=== PATIENT | male | born 1940 | race Caucasian/White ===

== ENCOUNTER 2022-09-01 10:00 | Outpatient (RCR) | payer MEDICARE, SELFPAY ==
--- NOTE | 2022-08-07 09:57 | MHC.PT.EP ---
[facility] [place] Office [place] Office [place] Office [address] Evon Agosto [address] [phone] F: [phone] F: [phone] F: [phone] F: [phone] Physical Therapy Plan of Care Date of Evaluation: Date of Surgery: Diagnosis: spinal stenosis Assessment: Patient is a 82 year old R handed male who presents with s/s consistent with lumbar stenosis, back pain. He does not work and has become more and more sedentary due to symptoms and functional limitations. Patient past medical history includes TKE with poor outcome on R. Current impairments include pain, posture, ROM, strength, flexibility, activity tolerance and functional mobility. Functional limitations include decreased ability to transfer, walk, stand, negotiate stairs, got out into the community and perform chores around the house. Patient is motivated with good rehab potential. Skilled PT will address impairments and functional limitations in order to achieve goals. Frequency and Duration: The patient will be seen 2x/week for 5 weeks Short Term Goals: I with HEP - 2 weeks Rotation 50% - 3 weeks 90/90 lacking < 30 - 3 weeks Able to walk 5 minutes without rest or increased pain - 3 weeks Alf Goals: Oswestry 30% or better - 5 weeks Able to walk/stand > 10 minutes without increased pain or need for rest - 5 weeks Hip strength 4/5 grossly - 5 weeks knee strength 4/5 grossly - 5 weeks Treatment Plan: Modalities to reduce pain, spasms and effusion. Manual therapy to restore motion and function. Therapeutic exercise to improve strength and flexibility. Neuromuscular re-education for posture and balance. Therapeutic activities to return to functional activities of daily living. Electronically signed by: Prudencio Burgos, PT Please sign and return to therapist. Thank you for your referral.
--- NOTE | 2022-09-01 10:58 | MHC.PT.DC ---
[facility] [place] Office [place] Office [place] Office [address] Evon Agosto [address] [phone] F: [phone] F: [phone] F: [phone] F: [phone] Physical Therapy Discharge Report Diagnosis: spinal stenosis Date of Surgery: Date of Evaluation: 08/07/22 Date of Discharge: 09/01/22 Treatments to Date: 8 Cancellations to Date: No Shows to Date: Discharge Status: Recommend MD Follow-up Discharge Summary: 09/01/22: pt notes that he has been feeling about the same in terms of his s/s. they have not progressed his symptoms, but simply have left them unchanged. we have attempted LE strength which has not been too successful thus far in attempting functional improvements. we will hold on PT at this time and I encouraged him to call for follow up with [facility]. 08/29/22: we have been continuing to progress strength and flex during PT. pt still has difficulty with transfers but we will continue to address strength. 08/25/22: pt progressing well with skilled PT with improved flex and strength. no adverse reactions and we will continue to progress as tolerated related to function. 08/23/22: pt still with transfer weakness. but tolerated increased resistance on shuttle well. we will continue to progress as tolerated. 08/18/22: pt has been feeling better overall with less s/s. we did after shuttle today to address sit <> Stand difficulty. 08/15; Pt R knee is limited with flexion making STS transfer dif. Pt fatigued after hip strengtheing. 08/09/22: pt responding well with improved activity tolerance. compliant with HEP. we will assess progression potential NV. Patient is a 82 year old R handed male who presents with s/s consistent with lumbar stenosis, back pain. He does not work and has become more and more sedentary due to symptoms and functional limitations. Patient past medical history includes TKE with poor outcome on R. Current impairments include pain, posture, ROM, strength, flexibility, activity tolerance and functional mobility. Functional limitations include decreased ability to transfer, walk, stand, negotiate stairs, got out into the community and perform chores around the house. Patient is motivated with good rehab potential. Skilled PT will address impairments and functional limitations in order to achieve goals. Electronically signed by: Prudencio Burgos, PT Please sign and return to therapist. Thank you for your referral.
== END 2022-09-07 08:02 | disposition home or self-care (01) ==
LOC: HO.PTCHIC 10:00
PROVIDERS: PCP Internal Medicine; Visit Provider Physician Assistant
DX: M48.061 Spinal stenosis, lumbar region without neurogenic claudication (principal)
CPT/HCPCS: 97110; 97162

== ENCOUNTER 2022-10-17 14:27 | Outpatient (REF) | payer MEDICARE, SELFPAY ==
--- NOTE | ~2022-10-17 | XR_ITS ---
EXAMINATION: XR HIP, RIGHT CLINICAL INFORMATION: Right sciatica. COMPARISON: None available. TECHNIQUE: AP and frog-leg lateral views of the right hip. FINDINGS: There is bony mineralization. The right acetabular joint space shows mild medial narrowing. There is mild subchondral sclerosis of the right acetabular roof. The right femoral head is smooth. There is no fracture or dislocation. The pubic symphysis is intact. XR/XR hip RT min 2V IMPRESSION: There is mild osteoarthritic change of the right hip. No fracture or dislocation is seen.
== END 2022-10-17 14:28 | disposition home or self-care (01) ==
LOC: HO.HOSX 14:27
PROVIDERS: PCP Internal Medicine; Visit Provider Neurological Surgery
DX: M54.31 Sciatica, right side (principal); M48.061 Spinal stenosis, lumbar region without neurogenic claudication
CPT/HCPCS: 73502; 99212

== ENCOUNTER 2022-10-17 14:27 | Outpatient (AMB) | payer MEDICARE, SELFPAY ==
--- NOTE | 2022-10-17 14:37 | A.SPINEOV_ITS ---
Intake Intake Visit Reasons: F/u PT Intake Note: Mr. Elliott is here to f/u PT and ? resubmit for surgery. Reprographics Associate Required: No Allergies Penicillins Allergy (Unknown, Verified 07/13/22 10:45) Unknown Assessment & Plan Assessment & Plan (1) Right sided sciatica: Code(s): M54.31 - Sciatica, right side (2) Lumbar stenosis: Code(s): M48.061 - Spinal stenosis, lumbar region without neurogenic claudication Plan Dear colleague, On 10/17/2022 assorted patient Andrew Elliott. He is an 82-year-old male that is suffering from persistent pain radiating down the outside of his right leg and sciatica his left leg. He was scheduled to undergo an L4-5 lumbar decompression and right L5 foraminotomy, which was denied by the insurance company due to lack of a course of physical therapy. In the meantime he went to physical therapy which did not alleviate his symptoms as expected. He comes back with a similar severe symptoms and after I recommended the same surgical plan as before. I did do an x-ray of the right hip to exclude hip pathology which came back negative. We will resubmit the request insurance company and schedule him for surgery. Jong Sullivan MD, PhD Spine Fellowship Trained Neurosurgeon Director, [facility] Orders: Orders XR hip RT min 2V 10/17/22 M54.31 - Sciatica, right side Coding Level of Care Code Est Pt Level 3 (37999) Diagnoses Right sided sciatica M54.31 Lumbar stenosis M48.061
== END 2022-10-17 15:51 | disposition home or self-care (01) ==
PROVIDERS: PCP Internal Medicine; Visit Provider Neurological Surgery
DX: M54.31 Sciatica, right side (principal); M48.061 Spinal stenosis, lumbar region without neurogenic claudication
CPT/HCPCS: 99213

== ENCOUNTER 2022-11-30 08:16 | Day surgery (SDC) | payer MEDICARE, SELFPAY ==
--- NOTE | 2022-11-16 | ECG_ITS ---
Test Reason : LBBB Blood Pressure : / mmHG Vent. Rate : 044 BPM Atrial Rate : 044 BPM P-R Int : 212 ms QRS Dur : 118 ms QT Int : 488 ms P-R-T Axes : 052 -23 036 degrees QTc Int : 417 ms Marked sinus bradycardia with 1st degree A-V block Non-specific intra-ventricular conduction delay Minimal voltage criteria for LVH, may be normal variant ( [place] product ) Abnormal ECG No previous ECGs available Referred By: Татьяна Ortiz Electronically Signed By:DANA LUX
[2022-11-16 12:12] VITALS: BP 178/79; PULSE 54; RESP 20; O2SAT 96; BMI 33.1
--- NOTE | 2022-11-16 12:31 | P.CONAN_ITS ---
Documented by User: Татьяна Ortiz NP 11/21/22 14:44 HPI - Anesthesia Eval Consult details Narrative: 82yo M for L 4-5 Decompression, Right L5 Laminectomy Lumbar Decompression (Foraminotomy) Medically cleared. EKG reviewed and no changes No recent illness. 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 Does not check blood sugar at home Asthma. Well controlled with flovent. Albuterol ~2 days per week VAN. CPAP QHS [facility] Active Problems Active Problems: All Active Problems (Updated 11/16/22 @ 12:11 by Lupis Burton RN) Lumbar stenosis (Acute) Right sided sciatica (Acute) Past Medical History Medical History (Updated 11/16/22 @ 12:11 by Lupis Burton RN) Skin cancer (melanoma) Back pain Murmur Anxiety Left bundle branch block (LBBB) Sleep apnea TIA (transient ischemic attack) Spinal stenosis Osteoarthritis Lumbar radiculopathy Emphysema of lung Asthma Type 2 diabetes mellitus HTN (hypertension) Elevated cholesterol Iron deficiency anemia Family History Family history of problems with anesthesia: No Surgical History Surgical History (Updated 11/16/22 @ 12:08 by Lupis Burton RN) H/O colonoscopy Hx of arthroscopy of right knee Hx of excision of mass History of total right knee replacement Hx of left inguinal hernia repair Hx of ventral hernia repair History of Problems with Anesthesia: No Social History Social History Are you a primary patient care nursing assistant to a significant other at home: No Do you presently have visiting nurse or other home services: No Patient Tobacco Use Status: Never used Tobacco Use of substances other than those prescribed or required for medical reasons: No Have you been hit, kicked, punched, or otherwise hurt by someone within the past year? If so, by whom?: No Are you DNR?: No Advance Directives Information Provided: Yes (brochure given) Advance Directives on File: No Recently lost weight without trying: No Eating poorly because of decreased appetite: No Nutrition Risks: Surgical patient >75years Poor oral hygiene: No (one tooth-upper right-permanent repair) Meds Allergies Allergy/AdvReac Type Severity Reaction Status Date / Time Penicillins Allergy Intermediate Rash Verified 11/16/22 11:57 Home Medications Medication Instructions Recorded Confirmed Last Taken Type amlodipine 5 mg tablet 5 mg PO DAILY 07/13/22 11/16/22 11/30/22 History aspirin 81 mg tablet,delayed 81 mg PO DAILY 07/13/22 11/16/22 Unknown History release cyanocobalamin (vitamin B-12) 1,000 mcg PO DAILY 07/13/22 11/16/22 Unknown History 1,000 mcg tablet (Vitamin B-12) docusate sodium 100 mg capsule 100 mg PO DAILY 07/13/22 11/16/22 Unknown History finasteride 5 mg tablet 5 mg PO DAILY 07/13/22 11/16/22 11/30/22 History hydrochlorothiazide 25 mg tablet 25 mg PO DAILY 07/13/22 11/16/22 Unknown History lisinopril 20 mg tablet 20 mg PO DAILY 07/13/22 11/16/22 Unknown History metformin 500 mg tablet 500 mg PO BID 07/13/22 11/16/22 Unknown History albuterol sulfate 90 mcg/actuation 2 puff inhalation Q4-6H PRN 11/15/22 11/16/22 11/30/22 History aerosol inhaler Shortness Of Breath atorvastatin 80 mg tablet 80 mg PO DAILY 11/15/22 11/16/22 Unknown History cholecalciferol (vitamin D3) 25 25 mcg PO DAILY 11/15/22 11/15/22 Unknown History mcg (1,000 unit) capsule (Vitamin D3) fluticasone propionate 110 2 puff inhalation BID 11/15/22 11/16/22 Unknown History mcg/actuation HFA aerosol inhaler (Flovent HFA) Exam Exam Date and Time: November 16, 2022 1231 Height,Weight and Vital Signs: Height 5 ft 6 in Weight 93 kg Last Vital Signs Pulse 54 11/16/22 12:12 Resp 20 11/16/22 12:12 BP 178/79 H 11/16/22 12:12 Pulse Ox 96 11/16/22 12:12 O2 Del Method Room Air 11/16/22 12:12 Pertinent Lab Results Pertinent Lab Results: Lab Results 11/16/22 11/16/22 11/16/22 Range/Units 13:17 13:17 13:17 WBC 8.9 (4.8-10.8) X10*3/uL RBC 4.54 L (4.60-5.80) X10*6/uL Hgb 14.7 (14.0-18.0) g/dl Hct 43.3 (42.0-52.0) % MCV 95.4 (80.0-98.0) fL MCH 32.4 (27.0-33.0) pg MCHC 33.9 (31.0-36.0) g/dl RDW 12.9 (11.0-16.0) % Plt Count 287 (160-400) X10*3/uL MPV 10.8 (9.4-12.4) fL Absolute Nucleated RBC 0.000 (0.0-0.012) X10*3/uL Nucleated RBC % (auto) 0.0 (0.0-0.2) /100WBC Sodium 141 (135-145) mmol/L Potassium 4.5 (3.3-5.1) mmol/L Chloride 105 (96-108) mmol/L Carbon Dioxide 29 (22-29) mmol/L Anion Gap 12 (12-20) BUN 16 (9-16) mg/dL Creatinine 0.81 (0.5-1.4) mg/dL Estim Creat Clear Calc 77.6 Estimated GFR > 60 Random Glucose 112 (60-115) mg/dL Estimat Average Glucose 134 mg/dL Hemoglobin A1c % 6.3 H (<6.0) % Calcium 10.7 H (8.4-10.2) mg/dL Narrative Narrative: EKG 10/2022 Vent. Rate : 044 BPM ? ? Atrial Rate : 044 BPM ?? P-R Int : 212 ms? QRS Dur : 118 ms ? ? QT Int : 488 ms ? ? ? P-R-T Axes : 052 -23 036 degrees ?? QTc Int : 417 ms ? Marked sinus bradycardia with 1st degree A-V block Non-specific intra-ventricular conduction delay Minimal voltage criteria for LVH, may be normal variant ( [place] product ) Abnormal ECG No previous ECGs available Airway Mallampati Class: II TM Dist: >3cm Neck ROM: Full Loose/Missing/Broken Teeth: No (1 x molar implant right upper) Heart: RRR Lungs: CTAB Assessment and Plan Assessment Anesthesia Assessment: Anesthesia Plan Discussed and PAT Visit Final Anesthetic Review Family History of Problems with Anesthesia: No History of Problems with Anesthesia: No Documented by User: Nicolasa Sunshine MD 11/30/22 08:59 PMFSH Past Medical History Medical History (Updated 11/16/22 @ 12:11 by Lupis Burton RN) Skin cancer (melanoma) Back pain Murmur Anxiety Left bundle branch block (LBBB) Sleep apnea TIA (transient ischemic attack) Spinal stenosis Osteoarthritis Lumbar radiculopathy Emphysema of lung Asthma Type 2 diabetes mellitus HTN (hypertension) Elevated cholesterol Iron deficiency anemia Surgical History Surgical History (Updated 11/16/22 @ 12:08 by Lupis Burton RN) H/O colonoscopy Hx of arthroscopy of right knee Hx of excision of mass History of total right knee replacement Hx of left inguinal hernia repair Hx of ventral hernia repair Social History Social History Are you a primary patient care nursing assistant to a significant other at home: No Do you presently have visiting nurse or other home services: No Patient Tobacco Use Status: Never used Tobacco Use of substances other than those prescribed or required for medical reasons: No Have you been hit, kicked, punched, or otherwise hurt by someone within the past year? If so, by whom?: No Are you DNR?: No Advance Directives Information Provided: Yes (brochure given) Advance Directives on File: No Recently lost weight without trying: No Eating poorly because of decreased appetite: No Nutrition Risks: Surgical patient >75years Poor oral hygiene: No (one tooth-upper right-permanent repair) Meds Allergies Allergy/AdvReac Type Severity Reaction Status Date / Time Penicillins Allergy Intermediate Rash Verified 11/16/22 11:57 Home Medications Medication Instructions Recorded Confirmed Last Taken Type amlodipine 5 mg tablet 5 mg PO DAILY 07/13/22 11/16/22 11/30/22 History aspirin 81 mg tablet,delayed 81 mg PO DAILY 07/13/22 11/16/22 Unknown History release cyanocobalamin (vitamin B-12) 1,000 mcg PO DAILY 07/13/22 11/16/22 Unknown History 1,000 mcg tablet (Vitamin B-12) docusate sodium 100 mg capsule 100 mg PO DAILY 07/13/22 11/16/22 Unknown History finasteride 5 mg tablet 5 mg PO DAILY 07/13/22 11/16/22 11/30/22 History hydrochlorothiazide 25 mg tablet 25 mg PO DAILY 07/13/22 11/16/22 Unknown History lisinopril 20 mg tablet 20 mg PO DAILY 07/13/22 11/16/22 Unknown History metformin 500 mg tablet 500 mg PO BID 07/13/22 11/16/22 Unknown History albuterol sulfate 90 mcg/actuation 2 puff inhalation Q4-6H PRN 11/15/22 11/16/22 11/30/22 History aerosol inhaler Shortness Of Breath atorvastatin 80 mg tablet 80 mg PO DAILY 11/15/22 11/16/22 Unknown History cholecalciferol (vitamin D3) 25 25 mcg PO DAILY 11/15/22 11/15/22 Unknown History mcg (1,000 unit) capsule (Vitamin D3) fluticasone propionate 110 2 puff inhalation BID 11/15/22 11/16/22 Unknown History mcg/actuation HFA aerosol inhaler (Flovent HFA) Assessment and Plan Assessment Anesthesia Assessment: Chart Reviewed Final Anesthetic Review NPO: Yes ASA Class: III Final Preanesthetic Review: No Changes in Pt Med Stat, Meds/Allgs Chart Reviewed, Consent Obtained/Reviewed and Anes Risks/Benef Reviewed Patient Risk: Intermediate Procedure Risk: Intermediate Anesthetic Plan Anesthetic Plan: GA Disposition: Standard PACU
[2022-11-16 13:55] LABS: Hematocrit 43.3 % (42.0-52.0); Hemoglobin 14.7 g/dl (14.0-18.0); Mean Corpuscular HGB Conc 33.9 g/dl (31.0-36.0); Mean Corpuscular Hemoglobin 32.4 pg (27.0-33.0); Mean Corpuscular Volume 95.4 fL (80.0-98.0); Mean Platelet Volume 10.8 fL (9.4-12.4); Platelet Count 287 X10*3/uL (160-400); Red Blood Count 4.54 X10*6/uL (4.60-5.80); Red Cell Distribution Width 12.9 % (11.0-16.0); White Blood Count 8.9 X10*3/uL (4.8-10.8)
[2022-11-16 15:10] LABS: Estimated Average Glucose 134 mg/dL; Hemoglobin A1c % 6.3 % (<6.0)
[2022-11-16 15:14] LABS: Anion Gap 12 (12-20); Blood Urea Nitrogen 16 mg/dL (9-16); Calcium 10.7 mg/dL (8.4-10.2); Carbon Dioxide 29 mmol/L (22-29); Chloride 105 mmol/L (96-108); Creatinine Clr Calc Pharmacy 77.6; Estimated Glomerular Filt Rate > 60; Glucose Random 112 mg/dL (60-115); Potassium 4.5 mmol/L (3.3-5.1); Sodium 141 mmol/L (135-145)
[2022-11-30] VITALS (11 sets, daily range): BP systolic 132–160; BP diastolic 57–80; PULSE 53–79; RESP 14–18; TEMP 36.1–36.3; O2SAT 95–100; BMI 33.1
--- NOTE | ~2022-11-30 | FL_ITS ---
EXAMINATION: XR FLUOROSCOPY WITH IMAGES CLINICAL INFORMATION: L4 - L5 decompression, right L5 laminectomy. COMPARISON: None available. TECHNIQUE: Fluoroscopy Supervised By: Dr. Sullivan. Fluoroscopy Time: Less than 1 minute. Cumulative Dose: 1.16 mGy. Images: 1. FINDINGS: Single radiograph demonstrates a probe behind what appears to be the L5 vertebral body. FL/FL guidance in OR IMPRESSION: Fluoroscopy was provided to referring physician for localization in the OR.
--- NOTE | 2022-11-30 07:03 | MHC.SHP ---
Pre-Procedural Eval Section A Date of Service: 11/30/22 The patient is an INPATIENT: No Changes since office visit: No Cold of Flu in the past 2 weeks, No New Medical Problems, No Changes in Medication and No Patient answered all questions Section B Chief Complaint: Spinal stenosis, lumbar region w/oneurogenic,sciat Allergies: Allergies Allergy/AdvReac Type Severity Reaction Status Date / Time Penicillins Allergy Intermediate Rash Verified 11/16/22 11:57 Review of Systems Sugical H&P ROS: Negative: Constitution, Cardiovascular, Respiratory, Neurological, Psychiatric, Hem-Onc, Allergic/Immunologic, Gastrointestinal, Genitourinary, Musculoskeletal, Integumentary, Endocrine and Eyes/Ears/Nose/Throat Exam Surgical H&P Exam: Not Evaluated: HEENT, Not Evaluated: Heart, Not Evaluated: Lungs, Not Evaluated: Extremities, Not Evaluated: Abdomen, Not Evaluated: Skin and Not Evaluated: Neurological Plan Diagnosis/Plan: Unchanged I have reviewed the history and physical and performed a pertinent physical examination on my patient. No changes have occurred unless specified. bilateral L4-5 decompression, right L5 foraminotomy Time Spent With Patient Time: Total time managing care of this patient today __5__ minutes.
[2022-11-30] MEDS: vancomycin HCL 1,500 MG in 0.9 % Sodium Chloride 500 ML 333.33 MG IV (08:46)
[2022-11-30 08:56] LABS: Glucose, Whole Blood 76 mg/dL (60-115)
[2022-11-30] MEDS: Gabapentin 300 MG CAPSULE PO (09:02)
[2022-11-30] MEDS: methocarbamoL 750 MG TABLET PO (09:02)
[2022-11-30] MEDS: Lactated Ringers 1,000 ML 100 ML IVCONT (09:14)
--- NOTE | 2022-11-30 09:31 | PC.NURSE ---
Pt gave verbal and written consent for photograph of case (without face) in OR.
--- NOTE | 2022-11-30 10:56 | PM.DS ---
DS: Providers Provider Date of Service: 11/30/22 Date of discharge: 11/30/22 Primary care physician: Alejo Flannery MD Admitting clinician: Jong Sullivan DS: Diagnosis Discharge Diagnosis (1) Right sided sciatica: Status: Acute DS: Summary Time Spent with Patient Time attestation: Total time managing care of this patient today ____ minutes. Discharge coordination time: Less than 30 minutes Quality: Safe Use of Opioids Does Pt have an Active Cancer Diagnosis on the Problem List?: No Quality: Stroke Does the patient have a stroke diagnosis?: No Physical Exam Vital Signs: Vital Signs: Last Vital Signs Temp 96.9 F 11/30/22 08:35 Pulse 79 11/30/22 08:35 Resp 18 11/30/22 08:35 BP 160/71 H 11/30/22 08:35 Pulse Ox 97 11/30/22 08:35 O2 Del Method Room Air 11/30/22 08:35 BMI result Body Mass Index 33.1 DS: Data Data Completed and Pending Labs on day of discharge: Laboratory Results - last 24 hr 11/30/22 11/30/22 08:39 08:51 POC Glucose 76 Blood Type A Positive Antibody Screen NEGATIVE Discharge Plan Discharge Patient Disposition: Home, Self-Care Referrals: Alejo Flannery MD [Primary Care Provider] - 1 Week Discharge Medications: New oxycodone 5 mg tablet 5 mg PO Q8-10H PRN (Reason: pain) Qty: 20 0RF Rx Instructions: Partial Fill upon patient request. docusate sodium [Colace] 100 mg capsule 100 mg PO BID Qty: 20 0RF Continued metformin 500 mg tablet 500 mg PO BID lisinopril 20 mg tablet 20 mg PO DAILY cyanocobalamin (vitamin B-12) [Vitamin B-12] 1,000 mcg Tablet 1,000 mcg PO DAILY amlodipine 5 mg tablet 5 mg PO DAILY aspirin 81 mg Tablet,Delayed Release (Dr/Ec) 81 mg PO DAILY docusate sodium 100 mg Capsule 100 mg PO DAILY hydrochlorothiazide 25 mg tablet 25 mg PO DAILY finasteride 5 mg tablet 5 mg PO DAILY atorvastatin 80 mg tablet 80 mg PO DAILY cholecalciferol (vitamin D3) [Vitamin D3] 25 mcg (1,000 unit) Capsule 25 mcg PO DAILY albuterol sulfate 90 mcg/actuation HFA aerosol inhaler 2 puff INHALATION Q4-6H PRN (Reason: Shortness Of Breath) fluticasone propionate [Flovent HFA] 110 mcg/actuation Hfa Aerosol Inhaler 2 puff INHALATION BID Discharge Orders: Discharge Order (Routine); Ordered 11/30/22 Ordered By: Parag Wright Diet: Advance to usual diet Activity on Discharge: As tolerated Activity Restrictions/Additional Instructions: After your spinal surgery we ask you to observe the following restrictions/guidelines: Activity: It is normal to feel some discomfort as you increase your activity, but that will improve with time. We ask you avoid heavy lifting or acitivities that cause pain. As a general rule, 8lbs is a safe limit for lifting right after surgery. Walk as much as you feel comfortable but not to exhaustion. You will feel extra tired the first few days after surgery. Stay well hydrated. It is OK to walk up and down stairs You may return to driving when you are off narcotics (such as vicodin, oxycodone, dilaudid, etc), and you are back to normal functional capacity. If you have any concerns please check with office before driving. Return to work is specific to each patient and each surgery, so please speak with your doctor/PA at first follow up. Please bring paperwork such as FMLA at that time if you need it filled out. Medications: For optimum pain control, it is best to start with a combination of 500 mg of Tylenol every 4 hours with 600 mg of Motrin every 8 hours, and use narcotics as needed in between for breakthrough pain. We will give you a short supply of narcotics after surgery (usually one weeks worth). If you need more please call the office but do not use more than prescribed. You will need to give our office 48 hours notice if you need narcotics refilled and we do not fill narcotics on weekends or evenings. If you are on a narcotic, it is a good idea to take a stool softener such as colace or senna to avoid constipation If you take blood thinner such as aspirin, Plavix, Coumadin, Effient, Eliquis etc for conditions such as Afib, DVT, Pulmonary embolus, coronary disease, stents etc please speak with your surgeon about specific details as to when you can resume these medications. You can resume NSAIDs on post op day 1 (eg: Motrin, Naproxen, etc). Follow up: Please call the office, , after surgery to arrange a 3 week follow up for wound check. Wound Care: You may remove your dressing on the first day after surgery. You may leave open to air. Please do not remove the steri strips underneath. they will fall off on their own in one week. IT IS NORMAL FOR THE WOUND TO OOZE OR BE BLOODY FOR A FEW DAYS AFTER SURGERY. IF THIS HAPPENS JUST PLACE NEW DRESSING OVER IT TO AVOID STAINING CLOTHES. You may shower on post op day # 1 We ask that you do not let the water soak the wound. If it does get wet, just towel dry lightly. Please do not scrub your incision or place any type of chemical/ointment on the wound. No tub baths, pools or jacuzzis for one month. If you have any leaking or redness from your wound, or fevers, please call office
[2022-11-30 13:13] LABS: Glucose, Whole Blood 186 mg/dL (60-115)
--- NOTE | 2022-11-30 15:53 | W.PM.OPN ---
Operative Note Operative Note Date of Service: 11/30/22 Narrative: Preoperative Diagnosis: L4-5 spinal stenosis/lateral recess stenosis/ right [id number] foraminal stenosis Operation: L4-5 bilateral Laminotomy, Partial facetectomy and right L5 foraminotomy with use of microscope Consent Informed Consent was obtained for this operation. I have explained the nature, purpose and benefits of the operation. I have discussed the risks and benefit of the operation including possible complications or adverse events with patient/family. Alternative(s) were discussed with the patient with their relative benefits and risks as well as the consequences of not accepting the operation were included in obtaining consent. Surgeon: PEARL KAUFFMAN MD, PHD Procedure Assisted By: Parag Toribio Description of Procedure this patient is suffering from bilateral leg pain with MRI showing L4-5 bilateral spinal stenosis and right L5 foraminal stenosis.. The patient was offered a L4-5decompression and right L5 foraminotomy The procedure complications were explained. The patient was consented. The patient was brought to the operating room and endotracheally intubated. The patient was turned in prone position on the Endy frame. Prep and drape was done followed by timeout. The Physician credit assistant provided access. A mid lumbar incision was made followed by release of the paravertebral muscle on the right side to expose the L4-5 lamina and facet joints. An intraoperative x-ray was obtained to confirm the correct level. The microscope was brought in. I took over the procedure. The high-speed drill was used to do a L4-5 laminotomy until flavum ligament was reached. a 2. Kerrison was used to expand the laminotomy near flush to the pedicles and to include a partial facetectomy. The flavum ligament was opened and the thecal sac and the beginning of the L5 nerve root were identified. Then the L5 nerve root was followed into the foramen and decompressed by doing a foraminotomy with a foraminotomy Kerrison. Significant foraminal stenosis was present. The patient was turned contralaterally. The spinous processes were undercut after which I decompressed the lateral recess on the contralateral side. A long nerve hook could be easily passed along the medial side of the pedicles as a sign of adequate decompression. The microscope was removed. Hemostasis was done. The physician credit assistant close the Incision in 2 layers. Steri-Strips were used to approximate incision. An OpSite with Tegaderm was used to cover the incision. All sponge needle counts were correct. Patient was extubated and transported in stable is to recovery room. Anesthesia: General Estimated Blood Loss (ml): minimal Complications: None Duration of Surgery: Under 60 Minutes Postoperative Plan: Discharge to home
== END 2022-11-30 14:01 | disposition home or self-care (01) ==
PROVIDERS: Nurse Practitioner; PCP Internal Medicine; Visit Provider Neurological Surgery
PROC: (CPT 63047; principal; 2022-11-30 10:30)
DX: M48.061 Spinal stenosis, lumbar region without neurogenic claudication (principal); M54.31 Sciatica, right side; M79.605 Pain in left leg; M79.604 Pain in right leg; G47.33 Obstructive sleep apnea (adult) (pediatric); J45.909 Unspecified asthma, uncomplicated; E11.9 Type 2 diabetes mellitus without complications; H53.8 Other visual disturbances; I10 Essential (primary) hypertension; I69.898 Other sequelae of other cerebrovascular disease; Z92.89 Personal history of other medical treatment; Z79.82 Long term (current) use of aspirin; Z79.899 Other long term (current) drug therapy; Z88.0 Allergy status to penicillin; Z79.84 Long term (current) use of oral hypoglycemic drugs
CPT/HCPCS: 63047; 36415; 80048; 82947; 83036; 85027; 86850; 86900; 86901; 93005; J0131; J1100; J2405; J3010; J3371

== ENCOUNTER → 2022-11-30 08:16 | Outpatient (BNV) | payer MEDICARE, SELFPAY | PROVIDERS: PCP Internal Medicine; Visit Provider Physician Assistant | DX: M48.06 Spinal stenosis, lumbar region (principal); M99.73 Connective tissue and disc stenosis of intervertebral foramina of lumbar region | CPT/HCPCS: 63047 ==

== ENCOUNTER 2022-12-22 10:06 | Outpatient (AMB) | payer MEDICARE, SELFPAY ==
--- NOTE | 2022-12-22 10:24 | A.SPINEOV_ITS ---
Intake Intake Visit Reasons: 1st post op Intake Note: Mr. Elliott is here today for his 1st post-op visit. Sample Book Maker Required: No Allergies Penicillins Allergy (Intermediate, Verified 11/16/22 11:57) Rash Assessment & Plan Assessment & Plan (1) Status post lumbar spine surgery for decompression of spinal cord: Code(s): Z98.890 - Other specified postprocedural states Plan Procdeure: L4-5 Laminotomy Wilfredo is a 82-year-old male who comes in today for his 1st postoperative appointment. He initially states that he had posterior sciatic type pain radiating from his low back into his posterior thigh terminating before the knee. He reports that his symptoms had a period of remittance directly after surgery but of since relapse to the same as he felt prior to surgery. He states he has difficulty walking and is upset that he is not able to complete the same tasks that he could do prior to surgery. He has been walking incompletely majority of his ADLs, and trying to stay active on his stationary bike. He expects concerns for not being able to do things such as cleaning out his garage, and lift weights at the gym. We discussed the limitations he needs to observed directly post spinal surgery, and he was encouraged he will continue to feel better as the inflammation goes down. Full mobility in upper and lower extremities. Patient is able to ambulate relatively well with somewhat of an antalgic gait. He is able to rise from a seated position without much difficulty. Wilfredo will follow-up with our office in 6 weeks, at which time we will consider additional imaging if he does not begin to improve. Coding Level of Care Code Global (90262) Diagnoses Status post lumbar spine surgery for decompression of spinal cord Z98.890
== END 2022-12-22 10:42 | disposition home or self-care (01) ==
PROVIDERS: PCP Internal Medicine; Visit Provider Physician Assistant
DX: Z98.890 Other specified postprocedural states (principal)
CPT/HCPCS: 99024

== ENCOUNTER → 2022-12-22 10:06 | Outpatient (BNVA) | payer MEDICARE, SELFPAY | PROVIDERS: PCP Internal Medicine; Visit Provider Physician Assistant ==

== ENCOUNTER 2023-02-02 09:46 | Outpatient (AMB) | payer MEDICARE, SELFPAY ==
--- NOTE | 2023-02-02 10:06 | A.SPINEOV_ITS ---
Intake Intake Visit Reasons: 2nd post op Intake Note: Mr. Elliott is today for his 2nd post op visit. 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 He reports he continues to have ?sciatic type? nerve pain in his left leg. He reports that his right leg pain has resolved, but questions if he ever had right leg pain (this pain was reported pre-operatively). He states that his left-sided sciatic type pain greatly inhibits his ability to complete his activities of daily living, and has caused him to essentially sit on his couch throughout the day. He is accompanied by his daughter who states that his pain has remained essentially the same since surgery. He states he has tried taking 1-2 doses of Tylenol throughout the day intermittently but feels that is not helpful for him. We extensively discussed taking 1000 mg of Tylenol 3 times a day for the forseeable future in order to get his pain somewhat under control. We also discussed the utility of adding gabapentin to his medication regimen for the time being to give him some nerve pain relief. The patient and his daughter requested to meet with Dr. Sullivan for a F/U. They report that he had identified several problems in his low back and offered them the potential for further surgeries. No new neurological deficits noted. Patient is able to ambulate without assistance, has some difficulty rising from a seated position. Incision sites is closed, well healed, with no signs of drainage. Wilfredo will be scheduled for a follow-up visit with Dr. Sullivan per the patient's request, to review additional potential surgical options. A prescription for gabapentin 200mg t.i.d. was sent to his pharmacy electronically. Aleksandr Sullivan MD,PhD [facility] Medications: New gabapentin 200 mg (2 x 100 mg) PO TID 60 caps 0RF Nerve pain Coding Level of Care Code Global (38039) Diagnoses Status post lumbar spine surgery for decompression of spinal cord Z98.890
== END 2023-02-02 10:43 | disposition home or self-care (01) ==
PROVIDERS: PCP Internal Medicine; Visit Provider Physician Assistant
DX: Z98.890 Other specified postprocedural states (principal)
CPT/HCPCS: 99024

== ENCOUNTER → 2023-02-02 09:46 | Outpatient (BNVA) | payer MEDICARE, SELFPAY | PROVIDERS: PCP Internal Medicine; Visit Provider Physician Assistant ==

== ENCOUNTER 2023-02-21 13:05 | Outpatient (AMB) | payer MEDICARE, SELFPAY ==
--- NOTE | 2023-02-21 13:28 | HO.SPINEOV ---
Intake Intake Visit Reasons: f/up Intake Note: Mr. Elliott is here today for a follow up. Convolute Tube Winder Required: No Allergies Penicillins Allergy (Intermediate, Verified 11/16/22 11:57) Rash Assessment & Plan Assessment & Plan (1) Left lumbar radiculopathy: Code(s): M54.16 - Radiculopathy, lumbar region (2) Left lateral knee pain: Code(s): M25.562 - Pain in left knee Plan Dear colleague: On 02/22/2023, I saw for postoperative visit Wilfredo Elliott. He underwent an L4-5 decompression and right lateral recess decompression in November. The right leg pain has disappeared but he continues to complain of severe left leg pain that radiates from the buttock and sometimes goes all the way down to the top of his foot. On further questioning, states that his pain in his left knee with flexion and extension. The pain is located on the lateral part of his knee. On exam: Straight leg raise is negative but flexing of the left knee produces pain in the lateral part of his knee. There is no swelling. Tinel over the peroneal nerve is negative. In summary, this patient continues to complain of symptoms in his left leg. Differential diagnosis is L5 radiculopathy versus a left knee pathology or a combination of the 2. I would like to order an MRI of the lumbar spine, an EMG test to confirm L5 pathology and an evaluation by our orthopedic service. I will see him back after the tests are done. Thank you for allowing me take care of your patient. Jong Sullivan MD, PhD Spine Fellowship Trained Neurosurgeon Director, [facility] Orders: Orders MR lumbar spine wo/w con Today M54.16 - Radiculopathy, lumbar region, Z98.890 - Other specified postprocedural states NE electromyogram (EMG) Today Z98.890 - Other specified postprocedural states Referrals Orthopedics Referral M25.562 - Pain in left knee, M54.16 - Radiculopathy, lumbar region Coding Level of Care Code Global (83313) Diagnoses Left lumbar radiculopathy M54.16 Left lateral knee pain M25.562
== END 2023-02-21 13:58 | disposition home or self-care (01) ==
PROVIDERS: PCP Internal Medicine; Visit Provider Neurological Surgery
DX: M54.16 Radiculopathy, lumbar region (principal); M25.562 Pain in left knee
CPT/HCPCS: 99024

== ENCOUNTER → 2023-02-21 13:05 | Outpatient (BNVA) | payer MEDICARE, SELFPAY | PROVIDERS: PCP Internal Medicine; Visit Provider Neurological Surgery ==

== ENCOUNTER 2023-03-07 07:50 | Outpatient (REF) | payer MEDICARE, SELFPAY ==
--- NOTE | ~2023-03-07 | XR_ITS ---
EXAMINATION: XR KNEE, LEFT CLINICAL INFORMATION: Left knee pain COMPARISON: None available. TECHNIQUE: Three views of the left knee. FINDINGS: Severe patellofemoral and medial compartment osteoarthritis with marked narrowing and prominent osteophytes. There is moderate osteoarthritis of the lateral compartment. Small joint effusion. No fracture. XR/XR knee LT 3V IMPRESSION: Severe patellofemoral and medial compartment osteoarthritis with a small joint effusion. No fracture.
== END 2023-03-07 07:51 | disposition home or self-care (01) ==
LOC: HO.HOSX 07:50
PROVIDERS: Visit Provider Orthopaedic Surgery
DX: M25.562 Pain in left knee (principal)
CPT/HCPCS: 73562; 99202

== ENCOUNTER 2023-03-07 10:47 | Outpatient (AMB) | payer MEDICARE, SELFPAY ==
--- NOTE | 2023-03-07 10:58 | MHC.OFFVIS ---
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 Patient describes his knee pain as achy in nature. The patient did undergo right total knee replacement surgery by another orthopedic surgeon at [facility] approximately 6 years ago. He reports continued mild to moderate discomfort in his right knee. He is also currently undergoing evaluation of his chronic low back pain. He is due to get an MRI of his low back over the next few weeks. Allergies Penicillins Allergy (Intermediate, Verified 03/07/23 11:03) Rash Medication List - Last Reconciled 03/07/23 by Navarro Nation MD albuterol sulfate 90 mcg/actuation 2 puffs inhalation Q4-6H PRN amlodipine 5 mg PO DAILY aspirin 81 mg PO DAILY atorvastatin 80 mg PO DAILY cholecalciferol (vitamin D3) (Vitamin D3) 25 mcg PO DAILY cyanocobalamin (vitamin B-12) (Vitamin B-12) 1,000 mcg PO DAILY docusate sodium (Colace) 100 mg PO BID docusate sodium 100 mg PO DAILY finasteride 5 mg PO DAILY fluticasone propionate 110 mcg/actuation (Flovent HFA) 2 puffs inhalation BID gabapentin 200 mg (2 x 100 mg) PO TID hydrochlorothiazide 25 mg PO DAILY lisinopril 20 mg PO DAILY metformin 500 mg PO BID oxycodone 5 mg PO Q8-10H PRN PFSH Medical History (Updated 03/07/23 @ 07:51 by Navarro Nation MD) Skin cancer (melanoma) Back pain Murmur Anxiety Left bundle branch block (LBBB) Sleep apnea TIA (transient ischemic attack) Spinal stenosis Osteoarthritis Lumbar radiculopathy Emphysema of lung Asthma Type 2 diabetes mellitus HTN (hypertension) Elevated cholesterol Iron deficiency anemia Surgical History (Updated 12/22/22 @ 10:45 by HASMUKH Nowak) H/O colonoscopy Hx of arthroscopy of right knee Hx of excision of mass History of total right knee replacement Hx of left inguinal hernia repair Hx of ventral hernia repair Social History Are you a primary pharmacy care coordinator to a significant other at home: No Do you presently have visiting nurse or other home services: No Patient Tobacco Use Status: Never used Tobacco Physical Exam Const Other: Well-nourished well-developed very friendly male awake alert and oriented x3 in no acute distress Extrem Other: Bilateral lower extremity examination shows good capillary refill, no skin lesions noted, normal sensation light touch Left knee examination shows a minimal effusion, mild crepitus with range of motion, minimal discomfort with range of motion, no instability Results Reviewed Results Reviewed: X-rays of the patient's left knee show joint space narrowing, subchondral sclerosis, no acute bony abnormalities Assessment & Plan Assessment & Plan (1) Left knee pain: Code(s): M25.562 - Pain in left knee Plan Mr. Elliott presents with intermittent left knee discomfort due to degenerative joint disease. I had a lengthy discussion with the patient and his daughter regarding the treatment options. At this point the patient's left knee discomfort is tolerable to him. We will hold off on a cortisone injection. He will follow up for his lumbar spine MRI and nerve conduction study as scheduled. He will follow up with me on an as-needed basis should his knee discomfort worsen in any way. Feel free to call me at any time should questions regarding his orthopedic management arise. Thank you very much for asking me to see this very friendly gentleman. I spent 22 minutes in reviewing the patient's records and imaging studies, seeing the patient and documenting in the medical record. Orders: Orders XR knee LT 3V Today M25.562 - Pain in left knee Coding Level of Care Code New Pt Level 2 (94917) Diagnoses Left knee pain M25.562
== END 2023-03-07 11:27 | disposition home or self-care (01) ==
PROVIDERS: PCP Internal Medicine; Visit Provider Orthopaedic Surgery
DX: M25.562 Pain in left knee (principal)
CPT/HCPCS: 99202

== ENCOUNTER 2023-03-15 08:48 | Outpatient (REF) | payer MEDICARE, SELFPAY ==
--- NOTE | 2023-03-15 08:52 | EMG_ITS ---
Left tibial and peroneal motor studies were performed. Left superficial peroneal and sural sensory studies were performed. Tibial H-reflex was obtained and needle examination was performed. IMPRESSION: 1. Left mid lumbar radiculopathy. 2. Moderately severe axonal sensory motor peripheral neuropathy. MD RAMON Morris/GELY / [id number]
== END 2023-03-15 08:49 | disposition home or self-care (01) ==
LOC: HO.NEURO 08:48
PROVIDERS: PCP Internal Medicine; Visit Provider Neurological Surgery
DX: Z98.890 Other specified postprocedural states (principal); M54.16 Radiculopathy, lumbar region
CPT/HCPCS: 95886; 95909

== ENCOUNTER 2023-03-29 13:41 | Outpatient (REF) | payer MEDICARE, SELFPAY ==
--- NOTE | ~2023-03-29 | MR_ITS ---
EXAMINATION: MR LUMBAR SPINE WITHOUT AND WITH CONTRAST CLINICAL INFORMATION: Other specified postprocedural status. COMPARISON: None TECHNIQUE: MRI of the lumbar spine was obtained using routine sequences without and with intravenous contrast. A total of 10 mL Gadavist was intravenously administered. FINDINGS: The lumbar vertebral bodies maintain normal heights. There is minimal anterolisthesis of L4 on L5. There is no significant disc height loss. No bone marrow edema is seen. The distal spinal cord appears normal. The conus medullaris terminates normally at the L2 level. There is no abnormal enhancement along the cauda equina nerve roots. T2 hyperintense renal cysts are seen bilaterally for which no additional imaging follow-up is recommended. Diverticulosis is noted. SPINAL LEVELS: L1-L2: No posterior disc abnormality. No spinal canal or neural foraminal stenosis. L2-L3: No posterior disc abnormality. No spinal canal or neural foraminal stenosis. L3-L4: No posterior disc abnormality or spinal canal stenosis. Mild facet arthropathy. Mild bilateral neural foraminal stenosis. L4-L5: Right hemilaminectomy changes. Enhancing granulation tissue seen along the right dorsolateral epidural space. No spinal canal stenosis. Moderate to severe facet arthropathy. 3 mm left-sided synovial facet cyst encroaches on the subarticular zone and contacts the traversing left L5 nerve root. Infolding of the ligamentum flavum in combination with facet arthropathy also narrows the right subarticular zone and contacts the traversing right L5 nerve root. Moderate right more than left neural foraminal stenosis with mild compression of both exiting L4 nerve roots. L5-S1: Mild disc bulging with moderate facet arthropathy. No spinal canal stenosis. Severe right and moderate left neural foraminal stenosis. Significant compression of the exiting right L5 nerve root. MR/MR lumbar spine wo/w con IMPRESSION: 1. At L4-L5 there are postoperative findings related to right hemilaminectomy. No spinal canal stenosis. 3 mm left-sided synovial facet cyst encroaches on the subarticular zone and contacts the traversing left L5 nerve root. Right subarticular stenosis is also present. Moderate right more than left neural foraminal stenosis with mild compression of both exiting L4 nerve roots. 2. At L5-S1 there is severe right and moderate left neural foraminal stenosis with significant compression of the exiting right L5 nerve root.
== END 2023-03-29 13:42 | disposition home or self-care (01) ==
LOC: HO.MRI 13:41
PROVIDERS: PCP Internal Medicine; Visit Provider Neurological Surgery
DX: M54.16 Radiculopathy, lumbar region (principal); Z98.890 Other specified postprocedural states
CPT/HCPCS: 72158; A9585

== ENCOUNTER 2023-04-11 14:55 | Outpatient (AMB) | payer MEDICARE, SELFPAY ==
--- NOTE | 2023-04-11 15:52 | A.OFFVIS_ITS ---
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: No Allergies Penicillins Allergy (Intermediate, Verified 03/07/23 11:03) Rash [facility] Medical History (Updated 04/11/23 @ 15:59 by Jong Sullivan MD, PhD) Skin cancer (melanoma) Back pain Murmur Anxiety Left bundle branch block (LBBB) Sleep apnea TIA (transient ischemic attack) Spinal stenosis Osteoarthritis Lumbar radiculopathy Emphysema of lung Asthma Type 2 diabetes mellitus HTN (hypertension) Elevated cholesterol Iron deficiency anemia Surgical History (Updated 12/22/22 @ 10:45 by HASMUKH Nowak) H/O colonoscopy Hx of arthroscopy of right knee Hx of excision of mass History of total right knee replacement Hx of left inguinal hernia repair Hx of ventral hernia repair Social History Are you a primary progressive care manager to a significant other at home: No Do you presently have visiting nurse or other home services: No Patient Tobacco Use Status: Never used Tobacco Assessment & Plan Assessment & Plan (1) Left lumbar radiculopathy: Code(s): M54.16 - Radiculopathy, lumbar region (2) Synovial cyst of lumbar spine: Code(s): M71.38 - Other bursal cyst, other site Plan Dear colleague, On 04/11/2023, I saw for follow-up Wilfredo Elliott for persistent left lumbar radiculopathy in an L5 distribution. The orthopedic surgeon excluded the knee as a source. EMG came positive for an origin in the lumbar spine. The repeat MRI of the lumbar spine shows a small synovial cyst compressing the left L5 nerve root, explaining his symptoms. Therefore I offered him a synovial cyst resection to decompress the L5 nerve root. He is scheduled for 06/21/2023. Thank you for letting me take care of your patient. Do not hesitate to call me with any questions or concerns. Jong Sullivan MD, PhD Spine Fellowship Trained Neurosurgeon Director, [facility] Coding Level of Care Code Est Pt Level 3 (81810) Diagnoses Left lumbar radiculopathy M54.16 Synovial cyst of lumbar spine M71.38
== END 2023-04-11 16:00 | disposition home or self-care (01) ==
PROVIDERS: PCP Internal Medicine; Visit Provider Neurological Surgery
DX: M54.16 Radiculopathy, lumbar region (principal); M71.38 Other bursal cyst, other site
CPT/HCPCS: 99213

== ENCOUNTER → 2023-04-11 14:55 | Outpatient (BNVA) | payer MEDICARE, SELFPAY | PROVIDERS: PCP Internal Medicine; Visit Provider Neurological Surgery | DX: M54.16 Radiculopathy, lumbar region (principal); M71.38 Other bursal cyst, other site | CPT/HCPCS: 99212 ==

== ENCOUNTER 2023-06-21 09:26 | Day surgery (SDC) | payer MEDICARE, SELFPAY ==
[2023-06-06 12:04] VITALS: BP 139/65; PULSE 64; RESP 20; O2SAT 97; BMI 33.1
--- NOTE | 2023-06-06 12:37 | P.CONAN_ITS ---
HPI - Anesthesia Eval Consult details Narrative: 82 yo male patient for L4-5 laminectomy and excision of synovial cyst PMFSH Active Problems Active Problems: All Active Problems (Updated 06/06/23 @ 12:10 by Gumaro Marrero MD) Synovial cyst of lumbar spine (Acute) Left knee pain (Acute) Left lateral knee pain (Acute) Left lumbar radiculopathy (Acute) Status post lumbar spine surgery for decompression of spinal cord (Acute) Right sided sciatica (Acute) Lumbar stenosis (Acute) Past Medical History Medical History Skin cancer (melanoma) Back pain Murmur Anxiety Left bundle branch block (LBBB) Sleep apnea TIA (transient ischemic attack) Spinal stenosis Osteoarthritis Lumbar radiculopathy Emphysema of lung Asthma Type 2 diabetes mellitus HTN (hypertension) Elevated cholesterol Iron deficiency anemia Family History Family history of problems with anesthesia: No Surgical History Surgical History History of back surgery H/O colonoscopy Hx of arthroscopy of right knee Hx of excision of mass History of total right knee replacement Hx of left inguinal hernia repair Hx of ventral hernia repair History of Problems with Anesthesia: No Social History Social History Are you a primary lawn care technician to a significant other at home: No Do you presently have visiting nurse or other home services: No Patient Tobacco Use Status: Never used Tobacco Use of substances other than those prescribed or required for medical reasons: No Have you been hit, kicked, punched, or otherwise hurt by someone within the past year? If so, by whom?: No Are you DNR?: No Advance Directives Information Provided: Yes (as above noted) Advance Directives on File: No Recently lost weight without trying: No Eating poorly because of decreased appetite: No Nutrition Risks: Surgical patient >75years Poor oral hygiene: No (one tooth-upper right-permanent repair) Meds Allergies Allergy/AdvReac Type Severity Reaction Status Date / Time Penicillins Allergy Intermediate Rash Verified 03/07/23 11:03 Home Medications Medication Instructions Recorded Confirmed Last Taken Type amlodipine 5 mg tablet 5 mg PO QAM 07/13/22 06/06/23 11/30/22 History aspirin 81 mg tablet,delayed 81 mg PO QAM 07/13/22 06/06/23 Unknown History release cyanocobalamin (vitamin B-12) 1,000 mcg PO QAM 07/13/22 06/06/23 Unknown History 1,000 mcg tablet (Vitamin B-12) finasteride 5 mg tablet 5 mg PO DAILY 07/13/22 06/06/23 11/30/22 History hydrochlorothiazide 25 mg tablet 25 mg PO DAILY 07/13/22 06/06/23 Unknown History lisinopril 20 mg tablet 20 mg PO DAILY 07/13/22 06/06/23 Unknown History metformin 500 mg tablet 500 mg PO BID 07/13/22 06/06/23 Unknown History albuterol sulfate 90 mcg/actuation 2 puff inhalation Q4-6H PRN 11/15/22 06/06/23 11/30/22 History aerosol inhaler Shortness Of Breath atorvastatin 80 mg tablet 80 mg PO QAM 11/15/22 06/06/23 Unknown History cholecalciferol (vitamin D3) 25 25 mcg PO QAM 11/15/22 06/06/23 Unknown History mcg (1,000 unit) capsule (Vitamin D3) fluticasone propionate 110 2 puff inhalation BID 11/15/22 06/06/23 Unknown History mcg/actuation HFA aerosol inhaler (Flovent HFA) trospium 20 mg tablet 20 mg PO BID 06/06/23 06/06/23 Unknown History Exam Height,Weight and Vital Signs: Height 5 ft 6 in Weight 92.986 kg Last Vital Signs Pulse 64 06/06/23 12:04 Resp 20 06/06/23 12:04 BP 139/65 06/06/23 12:04 Pulse Ox 97 06/06/23 12:04 O2 Del Method Room Air 06/06/23 12:04 Airway Mallampati Class: III TM Dist: >3cm Neck ROM: Full Loose/Missing/Broken Teeth: No (Denies broken, loose, missing teeth) Heart: RRR Lungs: CTAB Assessment and Plan Assessment Anesthesia Assessment: Anesthesia Plan Discussed, PAT Visit and Chart Reviewed Final Anesthetic Review Family History of Problems with Anesthesia: No History of Problems with Anesthesia: No NPO: Yes ASA Class: III Final Preanesthetic Review: No Changes in Pt Med Stat, Meds/Allgs Chart Reviewed, Consent Obtained/Reviewed and Anes Risks/Benef Reviewed Patient Risk: Intermediate Procedure Risk: Intermediate Assessment/Block/Sedation in SS: Assess/Block/Sedation-SS Anesthetic Plan Anesthetic Plan: GA Disposition: Standard PACU
[2023-06-21] VITALS (8 sets, daily range): BP systolic 137–145; BP diastolic 56–77; PULSE 60–83; RESP 16–18; TEMP 36.4–36.6; O2SAT 94–100; BMI 33.9
--- NOTE | ~2023-06-21 | FL_ITS ---
EXAMINATION: XR FLUOROSCOPY WITH IMAGES CLINICAL INFORMATION: Status-post L5 laminotomy and resection of synovial cyst. COMPARISON: Portions of the MRI lumbar spine dated 03/29/2023. TECHNIQUE: Fluoroscopy Supervised By: Dr. Rajat Sullivan. Fluoroscopy Time: 2.5 seconds. Cumulative Dose: 1.8301 mGy. DAP: 0.6965 Gycm2. Images: 1. FINDINGS: The submitted image shows a probe with tip positioned at the L4-L5 posterior elements. FL/FL guidance in OR IMPRESSION: Intraoperative fluoroscopic guidance is provided during L5 laminotomy and synovial cyst resection. Please see the patient's Operative Report for full procedural details.
--- NOTE | 2023-06-21 07:04 | P.HPSUR_ITS ---
Pre-Procedural Eval Section A - 24 Hr Update-Section A only Date of Service: 06/21/23 The patient is an INPATIENT: No Changes since office visit: No Cold of Flu in the past 2 weeks, No New Medical Problems, No Changes in Medication and No Patient answered all questions The patient has been examined within 24 hours of the surgical procedure. The History & Physical has been completed within 30 days and I have reviewed it.: No Section B - Complete if H&P > 30 days Chief Complaint: Radiculopathy, lumbar region, Other bursal cyst Allergies: Allergies Allergy/AdvReac Type Severity Reaction Status Date / Time Penicillins Allergy Intermediate Rash Verified 03/07/23 11:03 Review of Systems Sugical H&P ROS: Negative: Constitution, Cardiovascular, Respiratory, Neurological, Psychiatric, Hem-Onc, Allergic/Immunologic, Gastrointestinal, Genitourinary, Musculoskeletal, Integumentary, Endocrine and Eyes/Ears/No se/Throat Exam Surgical H&P Exam: Not Evaluated: HEENT, Not Evaluated: Heart, Not Evaluated: Lungs, Not Evaluated: Extremities, Not Evaluated: Abdomen, Not Evaluated: Skin and Not Evaluated: Neurological Plan Diagnosis/Plan: Unchanged left L4-5 decompression, resection of synovial cyst Time Spent With Patient Time: Total time managing care of this patient today __7__ minutes.
--- NOTE | 2023-06-21 09:22 | P.DS_ITS ---
DS: Providers Provider Date of Service: 06/21/23 Date of discharge: 06/21/23 Primary care physician: Alejo Flannery MD Admitting clinician: Jong Sullivan DS: Diagnosis Discharge Diagnosis (1) Synovial cyst of lumbar spine: Status: Acute DS: Summary Time Attestation Discharge Coordination Time (in mins): 6 Quality: Safe Use of Opioids Does Pt have an Active Cancer Diagnosis on the Problem List?: No Quality: Stroke Does the patient have a stroke diagnosis?: No Physical Exam Vital Signs: Vital Signs: Last Vital Signs Pulse 64 06/06/23 12:04 Resp 20 06/06/23 12:04 BP 139/65 06/06/23 12:04 Pulse Ox 97 06/06/23 12:04 O2 Del Method Room Air 06/06/23 12:04 BMI result Body Mass Index 33.1 Discharge Plan Discharge Patient Disposition: Home, Self-Care Referrals: Alejo Flannery MD [Primary Care Provider] - 1 Week Discharge Medications: New docusate sodium [Colace] 100 mg capsule 100 mg PO BID Qty: 20 0RF oxycodone 5 mg tablet 5 mg PO Q4H PRN (Reason: pain) Qty: 30 0RF Rx Instructions: Partial Fill upon patient request. Continued metformin 500 mg tablet 500 mg PO BID lisinopril 20 mg tablet 20 mg PO DAILY cyanocobalamin (vitamin B-12) [Vitamin B-12] 1,000 mcg Tablet 1,000 mcg PO QAM amlodipine 5 mg tablet 5 mg PO QAM aspirin 81 mg Tablet,Delayed Release (Dr/Ec) 81 mg PO QAM hydrochlorothiazide 25 mg tablet 25 mg PO DAILY finasteride 5 mg tablet 5 mg PO DAILY atorvastatin 80 mg tablet 80 mg PO QAM cholecalciferol (vitamin D3) [Vitamin D3] 25 mcg (1,000 unit) Capsule 25 mcg PO QAM albuterol sulfate 90 mcg/actuation HFA aerosol inhaler 2 puff INHALATION Q4-6H PRN (Reason: Shortness Of Breath) fluticasone propionate [Flovent HFA] 110 mcg/actuation Hfa Aerosol Inhaler 2 puff INHALATION BID docusate sodium [Colace] 100 mg capsule 100 mg PO BID Qty: 20 0RF trospium 20 mg Tablet 20 mg PO BID Rx Instructions: administer on an empty stomach Diet: Advance to usual diet Activity on Discharge: As tolerated Activity Restrictions/Additional Instructions: After your spinal surgery we ask you to observe the following rest rictions/guidelines: Activity: It is normal to feel some discomfort as you increase your activity, but that will improve with time. We ask you avoid heavy lifting or acitivities that cause pain. As a general rule, 8lbs is a safe limit for lifting right after surgery. Walk as much as you feel comfortable but not to exhaustion. You will feel extra tired the first few days after surgery. Stay well hydrated. It is OK to walk up and down stairs You may return to driving when you are off narcotics (such as vicodin, oxycodone, dilaudid, etc), and you are back to normal functional capacity. If you have any concerns please check with office before driving. Return to work is specific to each patient and each surgery, so please speak with your doctor/PA at first follow up. Please bring paperwork such as FMLA at that time if you need it filled out. Medications: For optimum pain control, it is best to start with a combination of 500 mg of Tylenol every 4 hours with 600 mg of Motrin every 8 hours, and use narcotics as needed in between for breakthrough pain. We will give you a short supply of narcotics after surgery (usually one weeks worth). If you need more please call the office but do not use more than prescribed. You will need to give our office 48 hours notice if you need narcotics refilled and we do not fill narcotics on weekends or evenings. If you are on a narcotic, it is a good idea to take a stool softener such as colace or senna to avoid constipation If you take blood thinner such as aspirin, Plavix, Coumadin, Effient, Eliquis etc for conditions such as Afib, DVT, Pulmonary embolus, coronary disease, stents etc please speak with your surgeon about specific details as to when you can resume these medications. You can resume NSAIDs on post op day 1 (eg: Motrin, Naproxen, etc). Follow up: Please call the office, , after surgery to arrange a 3 week follow up for wound check. Wound Care: You may remove your dressing on the first day after surgery. ?You may ?leave open to air. Please do not remove the steri strips underneath. they will fall off on their own in one week. IT IS NORMAL FOR THE WOUND TO OOZE OR BE BLOODY FOR A FEW DAYS AFTER SURGERY. ?IF THIS HAPPENS JUST PLACE NEW DRESSING OVER IT TO AVOID STAINING CLOTHES. You may shower on post op day # 1 We ask that you do not let the water soak the wound. If it does get wet, just towel dry lightly. Please do not scrub your incision or place any type of chemical/ointment on the wound. No tub baths, pools or jacuzzis for one month. If you have any leaking or redness from your wound, or fevers, please call office
--- NOTE | 2023-06-21 09:56 | HO.ANESPROP2 ---
HPI - Anesthesia Eval Consult details Narrative: l5 decompression PMFSH Active Problems Active Problems: All Active Problems (Updated 06/06/23 @ 11:58 by Lupis Burton RN) Synovial cyst of lumbar spine (Acute) Left knee pain (Acute) Left lateral knee pain (Acute) Left lumbar radiculopathy (Acute) Status post lumbar spine surgery for decompression of spinal cord (Acute) Right sided sciatica (Acute) Lumbar stenosis (Acute) Past Medical History Medical History Skin cancer (melanoma) Back pain Murmur Anxiety Left bundle branch block (LBBB) Sleep apnea TIA (transient ischemic attack) Spinal stenosis Osteoarthritis Lumbar radiculopathy Emphysema of lung Asthma Type 2 diabetes mellitus HTN (hypertension) Elevated cholesterol Iron deficiency anemia Family History Family history of problems with anesthesia: No Surgical History Surgical History History of back surgery H/O colonoscopy Hx of arthroscopy of right knee Hx of excision of mass History of total right knee replacement Hx of left inguinal hernia repair Hx of ventral hernia repair History of Problems with Anesthesia: No Social History Social History Are you a primary residential caregiver to a significant other at home: No Do you presently have visiting nurse or other home services: No Patient Tobacco Use Status: Never used Tobacco Use of substances other than those prescribed or required for medical reasons: No Have you been hit, kicked, punched, or otherwise hurt by someone within the past year? If so, by whom?: No Are you DNR?: No Advance Directives: No Advance Directives Information Provided: Yes Advance Directives on File: No Recently lost weight without trying: No Eating poorly because of decreased appetite: No Nutrition Risks: Surgical patient >75years Poor oral hygiene: No (one tooth-upper right-permanent repair) Meds Allergies Allergy/AdvReac Type Severity Reaction Status Date / Time Penicillins Allergy Intermediate Rash Verified 06/21/23 09:38 Active Medications: Current Medications Albuterol Sulfate (Albuterol Sulfate (0.083%) 2.5 Mg/3 Ml Vial.Neb) 2.5 mg INHALE ONCE PRN PRN Reason: Shortness of Breath/Wheezing Lactated Ringer's (Lr) 1,000 mls @ 100 mls/hr IVCONT .Q10H DANIEL Lactated Ringer's (Lr) 1,000 mls @ 100 mls/hr IVCONT .Q10H DANIEL Vancomycin HCl 1,000 mg/ (Sodium Chloride) 270 mls @ 270 mls/hr IV PREOP ONE Stop: 06/21/23 10:36 Home Medications Medication Instructions Recorded Confirmed Last Taken Type amlodipine 5 mg tablet 5 mg PO QAM 07/13/22 06/21/23 06/21/23 06:00 History aspirin 81 mg tablet,delayed 81 mg PO QAM 07/13/22 06/21/23 Unknown History release cyanocobalamin (vitamin B-12) 1,000 mcg PO QAM 07/13/22 06/21/23 Unknown History 1,000 mcg tablet (Vitamin B-12) finasteride 5 mg tablet 5 mg PO DAILY 07/13/22 06/21/23 11/30/22 History hydrochlorothiazide 25 mg tablet 25 mg PO DAILY 07/13/22 06/21/23 Unknown History lisinopril 20 mg tablet 20 mg PO DAILY 07/13/22 06/21/23 Unknown History metformin 500 mg tablet 500 mg PO BID 07/13/22 06/21/23 Unknown History albuterol sulfate 90 mcg/actuation 2 puff inhalation Q4-6H PRN 11/15/22 06/21/23 11/30/22 History aerosol inhaler Shortness Of Breath atorvastatin 80 mg tablet 80 mg PO QAM 11/15/22 06/21/23 Unknown History cholecalciferol (vitamin D3) 25 25 mcg PO QAM 11/15/22 06/21/23 Unknown History mcg (1,000 unit) capsule (Vitamin D3) fluticasone propionate 110 2 puff inhalation BID 11/15/22 06/21/23 Unknown History mcg/actuation HFA aerosol inhaler (Flovent HFA) trospium 20 mg tablet 20 mg PO BID 06/06/23 06/21/23 Unknown History Exam Height,Weight and Vital Signs: Height 5 ft 6 in Weight 95.254 kg Last Vital Signs Pulse 64 06/06/23 12:04 Resp 20 06/06/23 12:04 BP 139/65 06/06/23 12:04 Pulse Ox 97 06/06/23 12:04 O2 Del Method Room Air 06/06/23 12:04 Airway Mallampati Class: III TM Dist: <=3cm Neck ROM: Limited Heart: rrr Lungs: cta Assessment and Plan Assessment Anesthesia Assessment: Anesthesia Plan Discussed Final Anesthetic Review Family History of Problems with Anesthesia: No History of Problems with Anesthesia: No NPO: Yes ASA Class: III Final Preanesthetic Review: No Changes in Pt Med Stat, Meds/Allgs Chart Reviewed, Consent Obtained/Reviewed and Anes Risks/Benef Reviewed Patient Risk: Intermediate Procedure Risk: Intermediate Anesthetic Plan Anesthetic Plan: GA Disposition: Standard PACU
[2023-06-21 09:58] LABS: Glucose, Whole Blood 137 mg/dL (60-115)
[2023-06-21] MEDS: Albuterol Sulfate (0.083%) 2.5 MG/3 ML VIAL.NEB INHALE (10:19)
[2023-06-21] MEDS: methocarbamoL 750 MG TABLET PO (10:25)
[2023-06-21] MEDS: Gabapentin 300 MG CAPSULE PO (10:25)
[2023-06-21] MEDS: Lactated Ringers 1,000 ML 100 ML IVCONT (10:29)
--- NOTE | 2023-06-21 11:44 | P.OP_ITS ---
Operative Note Operative Note Date of Service: 06/21/23 Narrative: Preoperative Diagnosis: Extradural benign mass (synovial cyst) compressing the left L5 nerve root Operation: L4-5 Laminotomy for removal of extradural benign mass with use of microscope Consent Informed Consent was obtained for this operation. I have explained the nature, purpose and benefits of the operation. I have discussed the risks and benefit of the operation including possible complications or adverse events with patient/family. Alternative(s) were discussed with the patient with their relative benefits and risks as well as the consequences of not accepting the operation were included in obtaining consent. Surgeon: PEARL KAUFFMAN MD, PHD Procedure Assisted By: Parag mcguire Description of Procedure This 82-year-old male is suffering from a a left lumbar radiculopathy due to a extra dural benign mass compressing the left L5 nerve root. The patient was offered a removal of the mass to decompress the nervous structure. The procedure complications were explained. The patient was consented. The patient was brought to the operating room and endotracheally intubated. The patient was turned in prone position on the Endy frame. Prep and drape was done followed by timeout. Physician psychologist research assistant provided access. A mid lumbar incision was made followed by release of the paravertebral muscle on the left side to expose the L4-5 lamina and facet joint. An intraoperative x-ray was obtained to confirm the correct level. The microscope was brought in. I took over the procedure. The high-speed drill was used to do a L4-5 laminotomy. The flavum ligament was opened to expose the underlying thecal sac and start of the L5 nerve root. A large cystic mass was identified and dissected from the L5 nerve root. When the mass was completely relieved from the L5 nerve root I removed it in toto. Most likely we were dealing with a synovial cyst. A long the nerve root could be easily passed, a sign of adequate decompression of the nerve root . The microscope was removed. Hemostasis was done. Incision was closed in 2 layers. Steri-Strips were used to approximate incision. An OpSite with Tegaderm was used to cover the incision. All sponge needle counts were correct. Patient was extubated and transported in stable is to recovery room. Anesthesia: General Estimated Blood Loss (ml): 15 mL Duration of Surgery: Under 60 Minutes Postoperative Plan: Discharge to home
--- NOTE | 2023-06-21 12:31 | PM.DS ---
DS: Providers Provider Date of Service: 06/21/23 Primary care physician: Alejo Flannery MD DS: Diagnosis Discharge Diagnosis (1) Synovial cyst of lumbar spine: Status: Acute DS: Summary Time Attestation Discharge Coordination Time (in mins): 5 Quality: Safe Use of Opioids Does Pt have an Active Cancer Diagnosis on the Problem List?: No Quality: Stroke Does the patient have a stroke diagnosis?: No Physical Exam Vital Signs: Vital Signs: Last Vital Signs Temp 97.7 F 06/21/23 12:05 Pulse 76 06/21/23 12:15 Resp 16 06/21/23 12:15 BP 144/69 H 06/21/23 12:15 Pulse Ox 98 06/21/23 12:15 O2 Del Method Nasal Cannula wit h Capnography 06/21/23 12:15 O2 Flow Rate 2 06/21/23 12:15 BMI result Body Mass Index 33.9 DS: Data Data Completed and Pending Labs on day of discharge: Laboratory Results - last 24 hr 06/21/23 09:53 POC Glucose 137 H Discharge Plan Discharge Patient Disposition: Home, Self-Care Referrals: Alejo Flannery MD [Primary Care Provider] - 1 Week Discharge Medications: New docusate sodium [Colace] 100 mg capsule 100 mg PO BID Qty: 20 0RF oxycodone 5 mg tablet 5 mg PO Q4H PRN (Reason: pain) Qty: 30 0RF Rx Instructions: Partial Fill upon patient request. Continued metformin 500 mg tablet 500 mg PO BID lisinopril 20 mg tablet 20 mg PO DAILY cyanocobalamin (vitamin B-12) [Vitamin B-12] 1,000 mcg Tablet 1,000 mcg PO QAM amlodipine 5 mg tablet 5 mg PO QAM aspirin 81 mg Tablet,Delayed Release (Dr/Ec) 81 mg PO QAM hydrochlorothiazide 25 mg tablet 25 mg PO DAILY finasteride 5 mg tablet 5 mg PO DAILY atorvastatin 80 mg tablet 80 mg PO QAM cholecalciferol (vitamin D3) [Vitamin D3] 25 mcg (1,000 unit) Capsule 25 mcg PO QAM albuterol sulfate 90 mcg/actuation HFA aerosol inhaler 2 puff INHALATION Q4-6H PRN (Reason: Shortness Of Breath) fluticasone propionate [Flovent HFA] 110 mcg/actuation Hfa Aerosol Inhaler 2 puff INHALATION BID docusate sodium [Colace] 100 mg capsule 100 mg PO BID Qty: 20 0RF trospium 20 mg Tablet 20 mg PO BID Rx Instructions: administer on an empty stomach Discharge Orders: Discharge Order (Routine); Ordered 06/21/23 Ordered By: Parag Wright Diet: Advance to usual diet Activity on Discharge: As tolerated Activity Restrictions/Additional Instructions: After your spinal surgery we ask you to observe the following restrictions/guidelines: Activity: It is normal to feel some discomfort as you increase your activity, but that will improve with time. We ask you avoid heavy lifting or acitivities that cause pain. As a general rule, 8lbs is a safe limit for lifting right after surgery. Walk as much as you feel comfortable but not to exhaustion. You will feel extra tired the first few days after surgery. Stay well hydrated. It is OK to walk up and down stairs You may return to driving when you are off narcotics (such as vicodin, oxycodone, dilaudid, etc), and you are back to normal functional capacity. If you have any concerns please check with office before driving. Return to work is specific to each patient and each surgery, so please speak with your doctor/PA at first follow up. Please bring paperwork such as FMLA at that time if you need it filled out. Medications: For optimum pain control, it is best to start with a combination of 500 mg of Tylenol every 4 hours with 600 mg of Motrin every 8 hours, and use narcotics as needed in between for breakthrough pain. We will give you a short supply of narcotics after surgery (usually one weeks worth). If you need more please call the office but do not use more than prescribed. You will need to give our office 48 hours notice if you need narcotics refilled and we do not fill narcotics on weekends or evenings. If you are on a narcotic, it is a good idea to take a stool softener such as colace or senna to avoid constipation If you take blood thinner such as aspirin, Plavix, Coumadin, Effient, Eliquis etc for conditions such as Afib, DVT, Pulmonary embolus, coronary disease, stents etc please speak with your surgeon about specific details as to when you can resume these medications. You can resume NSAIDs on post op day 1 (eg: Motrin, Naproxen, etc). Follow up: Please call the office, , after surgery to arrange a 3 week follow up for wound check. Wound Care: You may remove your dressing on the first day after surgery. ?You may ?leave open to air. Please do not remove the steri strips underneath. they will fall off on their own in one week. IT IS NORMAL FOR THE WOUND TO OOZE OR BE BLOODY FOR A FEW DAYS AFTER SURGERY. ?IF THIS HAPPENS JUST PLACE NEW DRESSING OVER IT TO AVOID STAINING CLOTHES. You may shower on post op day # 1 We ask that you do not let the water soak the wound. If it does get wet, just towel dry lightly. Please do not scrub your incision or place any type of chemical/ointment on the wound. No tub baths, pools or jacuzzis for one month. If you have any leaking or redness from your wound, or fevers, please call office
== END 2023-06-21 13:45 | disposition home or self-care (01) ==
LOC: HO.SSS 09:27
PROVIDERS: PCP Internal Medicine; Visit Provider Neurological Surgery
PROC: (CPT 63267; principal; 2023-06-21 11:20)
DX: M54.16 Radiculopathy, lumbar region (principal); M71.38 Other bursal cyst, other site; I10 Essential (primary) hypertension; I44.7 Left bundle-branch block, unspecified; E78.00 Pure hypercholesterolemia, unspecified; D50.9 Iron deficiency anemia, unspecified; E11.9 Type 2 diabetes mellitus without complications; J45.909 Unspecified asthma, uncomplicated; Z79.51 Long term (current) use of inhaled steroids; Z79.82 Long term (current) use of aspirin; Z79.84 Long term (current) use of oral hypoglycemic drugs; Z79.899 Other long term (current) drug therapy; Z85.820 Personal history of malignant melanoma of skin; Z86.73 Personal history of transient ischemic attack (TIA), and cerebral infarction without residual deficits; Z88.0 Allergy status to penicillin; Z98.890 Other specified postprocedural states
CPT/HCPCS: 63267; 82947; 94640; J0131; J1100; J1885; J2405; J2704; J3010; J3371

== ENCOUNTER 2023-07-18 15:03 | Outpatient (AMB) | payer MEDICARE, SELFPAY ==
--- NOTE | 2023-07-18 16:11 | A.SPINEOV_ITS ---
Intake Visit Reasons: 1st post op Intake Note: Mr. Elliott is here for 1st post-op appointment. 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 He unfortunately reports continuation of his left-sided L5 radiculopathy despite a clear perioperative finding of nerve root compression. When describing his pain he runs his hand over the left lateral aspect of his thigh and over the posterior lateral aspect of his gastrocnemius. He states that it feels like a dull ache, and does not resolve when taking [id number] or prescribed pain medications. Full strength 5/5 in bilateral lower extremities. Mobility is intact. Sensation grossly intact. Incision site is closed, well healing, with no signs of drainage. I ordered an x-ray of the lumbar spine and left hip. The patient will call our office to schedule an MRI if the pain has not improved in 3 weeks. Aleksandr Sullivan MD,PhD [facility] [employer] Orders: Orders XR hip LT min 2V 07/18/23 M54.16 - Radiculopathy, lumbar region XR lumbar spine 4V min 07/18/23 M54.16 - Radiculopathy, lumbar region Coding Level of Care Code Global (61814) Diagnoses Left lumbar radiculopathy M54.16
== END 2023-07-18 16:42 | disposition home or self-care (01) ==
PROVIDERS: PCP Internal Medicine; Visit Provider Neurological Surgery
DX: M54.16 Radiculopathy, lumbar region (principal)
CPT/HCPCS: 99024

== ENCOUNTER → 2023-07-18 15:03 | Outpatient (BNVA) | payer MEDICARE, SELFPAY | PROVIDERS: PCP Internal Medicine; Visit Provider Neurological Surgery | DX: M54.16 Radiculopathy, lumbar region (principal) | CPT/HCPCS: 99212 ==